=== PATIENT | female | born 1995 | race Caucasian/White ===

== ENCOUNTER 2019-06-21 09:05 | Outpatient (CLI) | payer BC ==
--- NOTE | 2019-06-21 09:52 | ULT ---
RIGHT UPPER QUADRANT ULTRASOUND: INDICATIONS: Right upper abdominal pain. FINDINGS: There is no focal hepatic lesion or acute gallbladder pathology. The common duct is normal. No asci nilda. IMPRESSION: No acute abnormalities of the right upper quadrant. POS: [facility]
== END 2019-06-21 09:06 | disposition home or self-care (01) ==
LOC: ULT 09:05
PROVIDERS: ATTEND Family Medicine
DX: R10.11 Right upper quadrant pain (principal)
CPT/HCPCS: 76705

== ENCOUNTER 2019-07-11 08:30 | Outpatient (CLI) | payer BC ==
--- NOTE | 2019-07-11 13:02 | NM ---
EXAM: Nuclear medicine hepatobiliary scan HISTORY: Right upper quadrant abdominal pain After eating fatty meals TECHNIQUE: A nuclear medicine hepatobiliary scan was performed after administration of 5.0 mCi of rachelle hnetium 99m mebrofenin. A gallbladder ejection fraction was performed after administration of Ensure by mouth. COMPARISON: None FINDINGS: Prompt uptake of the radiopharmaceutical by the liver is seen. No photopenic liver defects are seen. Biliary activity is seen within 13 minutes. Gallbladder activity is seen within 45 minutes. Bowel activity is seen within 13 minutes. A gallbladder ejection fraction was calculated at 30%. IMPRESSION: Poor gallbladder ejection fraction can be seen with gallbladder dyskinesia.
== END 2019-07-11 08:31 | disposition home or self-care (01) ==
LOC: NM 08:30
PROVIDERS: ATTEND Family Medicine
DX: R10.11 Right upper quadrant pain (principal)
CPT/HCPCS: 78227; A9537